=== PATIENT | female | born 1950 | race Caucasian/White ===

== ENCOUNTER 2023-09-18 02:56 | Emergency (ER) | payer MEDICARE, OTHER ==
[2023-09-18 03:40] LABS: BASOPHILS PERCENT AUTO 0.4 % (0.0-1.0); EOSINOPHILS ABSOLUTE AUTO 0.2 K/mm3 (0.0-0.4); EOSINOPHILS PERCENT AUTO 2.5 % (0.0-6.0); HEMATOCRIT 40.8 % (37.0-47.0); HEMOGLOBIN 13.4 gm/dl (12.0-16.0); IMMATURE GRAN ABSOLUTE AUTO 0.01 K/mm3 (0.00-0.05); IMMATURE GRAN PERCENT AUTO 0.1 % (0.0-0.4); MEAN CORPUSCULAR HEMOGLOBIN 28.8 pg (28.0-32.0); MEAN CORPUSCULAR HGB CONC 32.8 g/dl (32.0-36.0); MEAN CORPUSCULAR VOLUME 87.7 fl (83.0-99.0); MEAN PLATELET VOLUME 11.5 fl (9.4-12.3); MONOCYTES ABSOLUTE AUTO 0.7 K/mm3 (0.0-0.8); MONOCYTES PERCENT AUTO 10.6 % (0.0-8.0); NEUTROPHILS ABSOLUTE AUTO 2.9 K/mm3 (1.8-7.7); NEUTROPHILS PERCENT AUTO 42.4 % (41.0-71.0); PLATELET COUNT,PLT 185 K/mm3 (150-400); RED BLOOD CELL COUNT 4.65 M/mm3 (4.10-5.30); WHITE BLOOD CELL COUNT,WBC 6.89 K/mm3 (3.9-11.3)
[2023-09-18] MEDS: Sodium Chloride 0.9% 1,000 ML IV SCH (03:43)
[2023-09-18] MEDS: Diltiazem 25 MG/5 ML SDV IVPUSH ONE (03:43)
[2023-09-18] MEDS: Diltiazem 125 MG in Sodium Chloride 0.9% 100 ML IV SCH (03:45)
[2023-09-18 04:13] LABS: A/G RATIO 1.1 (1-2); ALBUMIN 3.6 g/dl (3.4-5.0); ANION GAP 13.7 (5-15); BILIRUBIN TOTAL 0.4 mg/dL (0.2-1.0); C-REACTIVE PROTEIN 0.16 mg/dL (<0.30); CREATININE 0.8 mg/dL (0.55-1.02); EST CRCL DRUG DOSING (CG) 55.52 mL/min; MAGNESIUM 1.9 mg/dL (1.8-2.4); POTASSIUM,K 3.7 mEq/L (3.5-5.1); PROTEIN TOTAL,TP 6.8 g/dl (6.4-8.2)
[2023-09-18] MEDS: Propofol 200 MG/20 ML SDV IVPUSH ONE (06:49)
== END 2023-09-18 08:15 | disposition home or self-care (01) ==
LOC: JD.ED 02:56
DX: I48.91 Unspecified atrial fibrillation (principal)
CPT/HCPCS: 36415; 71045; 80053; 83605; 83735; 83880; 84443; 84484; 85025; 86140; 92960; 93005; 96361; 96365; 96366; 96375; 96376; 99152; 99285; J1742; J2704; J3490; J7030

== ENCOUNTER 2024-02-29 02:34 | Emergency (ER) | payer MEDICARE, OTHER ==
[2024-02-29 03:10] LABS: BASOPHILS ABSOLUTE AUTO 0.1 K/mm3 (0.0-0.2); BASOPHILS PERCENT AUTO 0.9 % (0.0-1.0); EOSINOPHILS ABSOLUTE AUTO 0.2 K/mm3 (0.0-0.4); HEMATOCRIT 40.5 % (37.0-47.0); HEMOGLOBIN 13.3 gm/dl (12.0-16.0); LYMPHOCYTES ABSOLUTE AUTO 2.9 K/mm3 (1.0-4.8); LYMPHOCYTES PERCENT AUTO 51.4 % (24.0-44.0); MEAN CORPUSCULAR HGB CONC 32.8 g/dl (32.0-36.0); MEAN CORPUSCULAR VOLUME 88.4 fl (83.0-99.0); MEAN PLATELET VOLUME 11.6 fl (9.4-12.3); MONOCYTES ABSOLUTE AUTO 0.5 K/mm3 (0.0-0.8); MONOCYTES PERCENT AUTO 9.7 % (0.0-8.0); NEUTROPHILS ABSOLUTE AUTO 1.9 K/mm3 (1.8-7.7); PLATELET COUNT,PLT 174 K/mm3 (150-400); RED BLOOD CELL COUNT 4.58 M/mm3 (4.10-5.30); WHITE BLOOD CELL COUNT,WBC 5.56 K/mm3 (3.9-11.3)
[2024-02-29] MEDS: Diltiazem 25 MG/5 ML SDV IVPUSH ONE (03:18)
[2024-02-29] MEDS: Diltiazem 125 MG in Sodium Chloride 0.9% 100 ML IV SCH (03:18)
[2024-02-29] MEDS: Sodium Chloride 0.9% 10 ML Syringe FLUSH PRN (03:24)
[2024-02-29 03:41] LABS: A/G RATIO 1.1 (1-2); ALANINE AMINOTRANSFERASE,ALT 17 U/L (14-59); ALBUMIN 3.5 g/dl (3.4-5.0); ALKALINE PHOSPHATASE 85 U/L (46-116); ANION GAP 10.8 (5-15); ASPARTATE AMNIOTRANSFERASE,AST 15 U/L (15-37); BILIRUBIN TOTAL 0.3 mg/dL (0.2-1.0); BLOOD UREA NITROGEN,BUN 14 mg/dL (7-18); BUN/CREATININE RATIO 17.5 (14-18); CALCIUM 8.8 mg/dL (8.5-10.1); CARBON DIOXIDE,CO2 26 mEq/L (21-32); CHLORIDE,CL 107 mEq/L (98-107); CREATININE 0.8 mg/dL (0.55-1.02); EST CRCL DRUG DOSING (CG) 55.52 mL/min; ESTIMATED GFR 77 mL/min (>60); GLUCOSE RANDOM 103 mg/dL (70-99); MAGNESIUM 1.7 mg/dL (1.8-2.4); POTASSIUM,K 3.8 mEq/L (3.5-5.1); PROTEIN TOTAL,TP 6.7 g/dl (6.4-8.2); SODIUM,NA 140 mEq/L (136-145); TSH 0.725 uIU/mL (0.358-3.74)
[2024-02-29 03:47] LABS: TROPONIN I HIGH SENSITIVITY < 4 pg/mL (<=51)
[2024-02-29] MEDS ORDERED: Propofol 200 MG/20 ML SDV IVPUSH ONE (04:20)
== END 2024-02-29 05:20 | disposition home or self-care (01) ==
LOC: JD.ED 02:34
DX: I48.91 Unspecified atrial fibrillation (principal); Z79.890 Hormone replacement therapy; Z79.899 Other long term (current) drug therapy
CPT/HCPCS: 36415; 71045; 80053; 83735; 84443; 84484; 85025; 93005; 96365; 99285; J3490; 93010

== ENCOUNTER 2024-04-29 07:46 | Day surgery (SDC) | payer MEDICARE, OTHER ==
[2024-04-29] MEDS: Tetracaine HCl/PF 0.5% 4 ML Bottle EYEBOTH SCH (07:59)
[2024-04-29] MEDS: Phenylephrine 2.5% Ophth Soln 2 ML Bot EYELF SCH (07:59)
[2024-04-29] MEDS: Polymyxin B/Trimethoprim 10 ML Bottle EYELF SCH (08:00)
[2024-04-29] MEDS: Pilocarpine 4% Ophth Soln 15 ML Bot EYELF SCH (08:00)
[2024-04-29] MEDS: Lidocaine 1% PF 2 ML SDV INJECT SCH (08:00)
[2024-04-29] MEDS: Brimonidine 0.2% Ophth Soln 5 ML Bottle EYELF SCH (08:00)
[2024-04-29] MEDS: Cefuroxime 10 MG/ML SYRINGE EYELF SCH (08:00)
[2024-04-29] MEDS: Tropicamide 1% Ophth Soln 3 ML Bottle EYELF SCH (08:24)
== END 2024-04-29 10:26 | disposition home or self-care (01) ==
LOC: JD.SDS 07:46
PROVIDERS: ATTEND Ophthalmology
DX: H25.813 Combined forms of age-related cataract, bilateral (principal); H16.103 Unspecified superficial keratitis, bilateral; H16.223 Keratoconjunctivitis sicca, not specified as Sjogren's, bilateral; H35.3131 Nonexudative age-related macular degeneration, bilateral, early dry stage; H35.363 Drusen (degenerative) of macula, bilateral; E07.9 Disorder of thyroid, unspecified; Z79.890 Hormone replacement therapy; Z79.899 Other long term (current) drug therapy
CPT/HCPCS: 66984; A9270; J0697; J3490

== ENCOUNTER 2024-06-03 08:55 | Day surgery (SDC) | payer MEDICARE, OTHER ==
[2024-06-03] MEDS: Phenylephrine 2.5% Ophth Soln 2 ML Bot EYERT SCH (09:02)
[2024-06-03] MEDS: Lidocaine 1% PF 2 ML SDV INJECT SCH (09:02)
[2024-06-03] MEDS: Brimonidine 0.2% Ophth Soln 5 ML Bottle EYERT SCH (09:03)
[2024-06-03] MEDS: Polymyxin B/Trimethoprim 10 ML Bottle EYERT SCH (09:03)
[2024-06-03] MEDS: Tetracaine HCl/PF 0.5% 4 ML Bottle EYEBOTH SCH (09:03)
[2024-06-03] MEDS: Cefuroxime 10 MG/ML SYRINGE EYERT SCH (09:04)
[2024-06-03] MEDS: Pilocarpine 4% Ophth Soln 15 ML Bot EYERT SCH (09:04)
[2024-06-03] MEDS: Tropicamide 1% Ophth Soln 3 ML Bottle EYERT SCH (09:35)
== END 2024-06-03 11:18 ==
LOC: JD.SDS 08:55
PROVIDERS: ATTEND Ophthalmology
DX: H26.9 Unspecified cataract (principal); E03.9 Hypothyroidism, unspecified; Z79.890 Hormone replacement therapy; Z79.899 Other long term (current) drug therapy
CPT/HCPCS: 66984; A9270; J0697; J3490; V2632